=== PATIENT | male | born 1960 | race African-American/Black ===

== ENCOUNTER 2018-10-05 17:53 | Emergency (ER) | payer OTHER ==
--- NOTE | 2018-10-05 18:56 | ED ---
HPI Chest Pain - HPI Summary HPI Summary: A 58 y/o male presents to [facility] with a chief complaint of left CP since . He rates his pain as 5/10. The patient reports that he was exercising performing squats and had a large brunch later that day. After brunch he had CP and deep breaths aggravated his pain. He also c/o dyspnea, rib pain and cough. He states that he took ibuprofen the night of 10/04/18 and that his pain was worse on 10/04/18 than it is on 10/05/18. He has a Hx of HTN and takes 5mg Norvasc daily. - History of Current Complaint Chief Complaint: EDChestPainROMI Time Seen by Provider: 10/05/18 18:35 Hx Obtained From: Patient Onset/Duration: Started Days Ago, Still Present Timing: Constant Initial Severity: Moderate Current Severity: Moderate Pain Intensity: 5 Pain Scale Used: 0-10 Numeric Chest Pain Location: Diffuse - left side Chest Pain Radiates: No Character: Other: - sore Associated Signs and Symptoms: Positive: Cough, Other: - dyspnea, rib pain - Allergy/Home Medications Allergies/Adverse Reactions: Allergies Allergy/AdvReac Type Severity Reaction Status Date / Time alprazolam [From Xanax] Allergy Anaphylatic Verified 10/05/18 17:56 Shock Home Medications: Home Medications amLODIPine TAB* [Norvasc 5 mg TAB*] 5 mg PO DAILY 10/05/18 [History Confirmed ] PMH/Surg Hx/FS Hx/Imm Hx Endocrine/Hematology History: Denies: Hx Diabetes Cardiovascular History: Reports: Hx Hypertension Denies: Hx Cardiac Arrest Infectious Disease History: No Infectious Disease History: Denies: Traveled Outside the [place] in Last 30 Days - Family History Known Family History: Positive: Cardiac Disease, Hypertension, Other - Cancer- father,sister Negative: Diabetes - Social History Alcohol Use: Occasionally Substance Use Type: Reports: None Smoking Status (MU): Never Smoked Tobacco Review of Systems Positive: Chest Pain Positive: Cough, Other - dyspnea Positive: Myalgia - rib pain All Other Systems Reviewed And Are Negative: Yes Physical Exam - Summary Physical Exam Summary: Appearance: The patient is well-nourished in no acute distress and in no acute pain. Skin: The skin is warm and dry and skin color reflects adequate perfusion. HEENT: The head is normocephalic and atraumatic. The pupils are equal and reactive. The conjunctivae are clear and without drainage. Nares are patent and without drainage. Mouth reveals moist mucous membranes and the throat is without erythema and exudate. The external ears are intact. The ear canals are patent and without drainage. The tympanic membranes are intact. Neck: The neck is supple with full range of motion and non-tender. There are no carotid bruits. There is no neck vein distension. Respiratory: Tender left chest wall. Crackles on base of left lung. Cardiovascular: Heart is regular rate and rhythm. There is no murmur or rub auscultated. There is no peripheral edema and pulses are symmetrical and equal. Abdomen: The abdomen is soft and non-tender. There are normal bowel sounds heard in all four quadrants and there is no organomegaly palpated. Musculoskeletal: There is no back tenderness noted. Extremities are non-tender with full range of motion. There is good capillary refill. There is no peripheral edema or calf tenderness elicited. Neurological: Patient is alert and oriented to person, place and time. The patient has symmetrical motor strength in all four extremities. Cranial nerves are grossly intact. Deep tendon reflexes are symmetrical and equal in all four extremities. Psychiatric: The patient has an appropriate affect and does not exhibit any anxiety or depression. Triage Information Reviewed: Yes Vital Signs On Initial Exam: Initial Vitals Temp Pulse Resp BP Pulse Ox 98.6 F 83 16 153/83 98 10/05/18 17:57 10/05/18 17:57 10/05/18 17:57 10/05/18 17:57 10/05/18 17:57 Vital Signs Reviewed: Yes Diagnostics - Vital Signs Vital Signs Temp Pulse Resp BP Pulse Ox 10/05/18 17:57 98.6 F 83 16 153/83 98 - Laboratory Result Diagrams: 10/05/18 19:20 10/05/18 19:20 Lab Statement: Any lab studies that have been ordered have been reviewed, and results considered in the medical decision making process. - Radiology CXR Radiology Interpretation Completed By: ED Physician Summary of Radiographic Findings: New onset right pleural effusion. Pending official radiology report. - CT Chest/thorax CTA CT Interpretation Completed By: Radiologist Summary of CT Findings: 1. Mild bilateral pulmonary embolism, left greater than right and greatest in. the lingula with near complete occlusion. 2. Mild lingular ground glass infiltrates and mild left lower lobe atelectasis. or consolidation. Pulmonary infarct is not excluded. There is mild right lower. lobe fibro-atelectatic change. ED physician has reviewed this report. - EKG 18:04 Cardiac Rate: NL - 86 bpm EKG Rhythm: Sinus Rhythm Summary of EKG Findings: Normal sinus rhythm, normal ST, no ectopy, no STEMI Chest Pain Course/Dx - Course Course Of Treatment: Mr. Escobedo presented with a pleuritic left-sided chest pain, normal vitals and was nontoxic in appearance. Chest x-ray revealed left lower lobe infiltrate versus atelectasis and his d-dimer was elevated 700. CTA was obtained and showed bilateral PEs and probable left lingular infarction. The hospitalist service was contacted for admission. - Diagnoses Provider Diagnoses: Pulmonary emboli - Provider Notifications Discussed Care Of Patient With: Lisa Torres Time Discussed With Above Provider: 21:40 Instructed by Provider To: Admit As Inpatient - Critical Care Time Critical Care Time: 30-74 min Discharge - Sign-Out/Discharge Documenting (check all that apply): Patient Departure - admit - Discharge Plan Condition: Fair Disposition: ADMITTED TO [facility] Referrals: No Primary Care Phys,NOPCP [Primary Care Provider] - - Billing Disposition and Condition Condition: FAIR Disposition: Admitted to [facility] - Attestation Statements Document Initiated by Bernardino: Yes Documenting Scribe: Chuck Root Provider For Whom Bernardino is Documenting (Include Credential): Krzysztof Taylor MD Scribe Attestation: IChuck, scribed for Krzysztof Taylor MD on 10/05/18 at 2205. Scribe Documentation Reviewed: Yes Provider Attestation: The documentation as recorded by the Chuck bashir accurately reflects the service I personally performed and the decisions made by me, Krzysztof Taylor MD Status of Scribe Document: Viewed
[2018-10-05 19:32] LABS: ABS Basophils 0.1 10^3/ul (0-0.2); ABS Eosinophils 0.1 10^3/ul (0-0.6); ABS Lymphocytes 1.6 10^3/ul (1.0-4.8); ABS Neutrophils 5.4 10^3/ul (1.5-7.7); ABS Nucleated RBC 0 10^3/ul; Eosinophil % 1.4 %; Hematocrit 49 % (42-52); Hemoglobin 16.1 g/dl (14.0-18.0); Lymphocyte % 19.9 %; Mean Corpuscular HGB Conc 33 g/dl (31-36); Mean Corpuscular Hemoglobin 28 pg (27-31); Mean Corpuscular Volume 86 fL (80-94); Mean Platelet Volume 7.7 fL (7.4-10.4); Nucleated Red Blood Cells % 0.1; Platelet Count 244 10^3/ul (150-450); Red Blood Count 5.68 10^6/ul (4.00-5.40); Red Cell Distribution Width 15 % (10.5-15); White Blood Count 8.1 10^3/ul (3.5-10.8)
[2018-10-05 19:49] LABS: EGFR Non-African American 95.5 (>60)
[2018-10-05] MEDS ORDERED: Iohexol 350* (CONTRAST) 500 ML MDV IV ONE (20:44)
[2018-10-05] MEDS ORDERED: Rivaroxaban TAB(*) 15 MG PO ONE ×2 (23:14→23:15)
[2018-10-06 00:02] VITALS: BP 165/78
--- NOTE | 2018-10-06 01:35 | CONS ---
CC: Dr. Nowak in [place] * [facility] MEDICINE CONSULTATION REPORT: DATE OF CONSULT: 10/05/18 - EMERGENCY DEPT PRIMARY CARE PHYSICIAN: Dr. Nowak in [place]. ATTENDING PHYSICIAN: Dr. Lisa Torres (dictation provided by Anuradha Gaytan NP) CHIEF COMPLAINT: Chest pain. HISTORY OF PRESENT ILLNESS: Mr. 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 Mr. Escobedo states he was in his normal state of health until Saturday when he began feeling some pain in the left side of his chest. He states at times it was 10/10, it is worse with deep breath, worse with coughing. He thought perhaps it was due to aggressive exercise routine he had done on Saturday, but when the symptoms did not let up by today, he knew that something was amiss. He denies any shortness of breath. He has had no other symptoms. No fever, no cough. No nausea, vomiting, diarrhea, or abdominal pain. In the emergency room, Mr. Escobedo had labs which showed a D-dimer of 701. He had a troponin which was 0.00, and the rest of his labs were unremarkable. He had a chest thorax CTA, which showed pulmonary emboli read as "mild" with left greater than right and greatest in the lingula with near complete occlusion and there was a mild lingular ground-glass infiltrate and left lower lobe atelectasis consistent likely with a pulmonary infarction. The patient's vitals were stable. He was not tachycardic for the most part, but his heart rate was never over 100. His blood pressure was stable. PAST MEDICAL HISTORY: 1. History of brain aneurysm with bleeding and sequela of left footdrop. 2. Hypertension. 3. History of DVT to right lower extremity. MEDICATIONS: Outpatient, amlodipine 5 mg p.o. daily. ALLERGIES: ALPRAZOLAM. FAMILY HISTORY: Reviewed and noncontributory. SOCIAL HISTORY: No report of alcohol, tobacco, or drug use. The patient lives [place] near [place], but is here in town while working. REVIEW OF SYSTEMS: A 14-point review of systems was completed with Mr. Escobedo and all those not mentioned above were negative. PHYSICAL EXAMINATION: Vital Signs: Temperature 98.6, pulse rate 100, respiratory rate 28, O2 saturation 92% to 98% on room air, blood pressure 160/ 100. General: Mr. Escobedo is sitting up on the bed. He is in no acute distress. Neuro: He is alert, he is oriented x3. He moves all extremities equally. There is no facial asymmetry or focal weakness. Extraocular movements are intact. Heart: S1, S2. No murmur, rub, or gallop, and regular. Lungs: Clear to auscultation bilaterally with no accessory muscle use and good aeration. Abdomen: Soft and nontender with bowel sounds positive x4. Extremities: No cyanosis or edema. Skin is intact. DIAGNOSTIC STUDIES/LAB DATA: Sodium 139, potassium 4.2, chloride 105, serum bicarbonate 29, BUN 15, creatinine 0.83, glucose 100, lactic acid 0.6. Troponin 0.00. Repeat troponin was 0.04. WBC 8.1, hemoglobin 16.1, hematocrit 49, platelet count 244. D-dimer 701. Again, the chest thorax CTA shows the pulmonary embolism as noted above. EKG shows sinus rhythm with no evidence of ischemia. ASSESSMENT AND PLAN: Mr. Escobedo is a 58-year-old male who presents today to the hospital with concern for chest pain, found to have an acute pulmonary embolism. Hospital Medicine has been consulted regarding need for admission. We concur that the patient does warrant admission to the hospital and he should be observed in the hospital overnight. We would recommend that he have a transthoracic echocardiogram and initiation of oral anticoagulation. The patient does have a distant history of an aneurysm. This has been discussed whether or not this will be safe to put him on anticoagulation, and as of this time after discussion with Dr. Hayden, that the benefits of anticoagulation outweigh the risk given that any previous aneurysm has certainly stabilized. In reviewing with Dr. Hayden as well, there is no indication that there would be any difference in risk ratio for warfarin versus a newer anticoagulant, and so we would agree that an anticoagulant with direct-acting oral anticoagulant would be appropriate. Plan to start Xarelto. Unfortunately, the patient is not able to stay in the hospital. He states adamantly that he has a job that he cannot miss and he must be there by 8 a.m. to unlock the doors of his facility. He understands the risk of leaving, but states that he also cannot lose his job. We have worked with pharmacy to provide him with his first dose of Xarelto tonight and also to send him home with one dose for the a.m. I have sent a prescription for his Xarelto to [facility]. I have encouraged him to call [facility] tomorrow morning to determine the cost of the medication and to make sure that he is able to afford it. If he has any issue whatsoever with obtaining this medication, I have asked him to call our [facility] and I have left him the phone number. I have also told him that he can call [facility] at any time if he has any issue or needs followup and is unable to get to see his primary care physician. I have instructed him that he should immediately return to the hospital should he have any chest pain or shortness of breath. I have counseled him fully that our recommendation is for him to remain in the hospital and advised him about the risks and benefits of leaving. He has completed an AMA form today and he has capacity to make that decision. Mr. Escobedo will be discharged today against medical advice at his wishes. Every effort has been made to make sure that he is safe with this discharge and to provide him with appropriate medications. TIME SPENT: Approximately 90 minutes were spent in the consultation of this patient, more than half the time spent with the patient at the bedside reviewing the events leading up to this hospitalization, performing this consultation, and reviewing the discharge plan. ANURADHA GAYTAN NP [id number]/[facility] #: [id number] JAMAL
== END 2018-10-06 00:01 | disposition home or self-care (01) ==
LOC: ED 17:53
DX: I26.99 Other pulmonary embolism without acute cor pulmonale (principal); R05 Cough; R06.00 Dyspnea, unspecified; R07.81 Pleurodynia; R07.9 Chest pain, unspecified; Z86.79 Personal history of other diseases of the circulatory system; Z86.718 Personal history of other venous thrombosis and embolism
CPT/HCPCS: 36415; 71046; 71275; 80053; 83605; 84484; 85025; 85379; 93005; 99284; Q9967

== ENCOUNTER 2019-04-03 10:52 | Emergency (ER) | payer OTHER ==
[2019-04-03 13:20] LABS: ABS Eosinophils 0.1 10^3/ul (0-0.6); ABS Lymphocytes 1.6 10^3/ul (1.0-4.8); ABS Monocytes 0.5 10^3/ul (0-0.8); ABS Neutrophils 2.5 10^3/ul (1.5-7.7); Hematocrit 47 % (42-52); Hemoglobin 15.2 g/dL (14.0-18.0); Lymphocyte % 33.8 %; Mean Corpuscular HGB Conc 33 g/dL (31-36); Mean Corpuscular Hemoglobin 28 pg (27-31); Mean Corpuscular Volume 87 fL (80-94); Mean Platelet Volume 7.4 fL (7.4-10.4); Nucleated Red Blood Cells % 0.1; Platelet Count 260 10^3/uL (150-450); Red Cell Distribution Width 14 % (10.5-15); White Blood Count 4.8 10^3/uL (3.5-10.8)
--- NOTE | 2019-04-03 13:24 | ED ---
Abdominal Pain/Male - HPI Summary HPI Summary: This patient is a 58 year old M presenting to ED with a chief complaint of left rib/mid back pain since one week ago. Patient had a PE last September/October and states this feels similar. Patient is not taking Xarelto anymore. The patient rates the pain 5/10 in severity. Symptoms aggravated by nothing. Symptoms alleviated by nothing. Patient reports productive coughing, pain to abdomen and back, SOB, fatigue. 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 FHx of cancer, cardiac disease, ND. Patient drinks alcohol but does not smoke tobacco or use drugs. PSHx of hand reconstruction 20 years ago. - History of Current Complaint Chief Complaint: EDGeneral Stated Complaint: LEFT RIB PAIN, POSSIBLE BLOOD CLOT , NECK PAIN PER Time Seen by Provider: 04/03/19 13:12 Hx Obtained From: Patient Onset/Duration: Lasting Weeks - 1 week, Still Present Timing: Constant Severity Currently: Mild Pain Intensity: 4 Pain Scale Used: 0-10 Numeric Location: Other - Left rib Radiates: Yes Radiates to: Back - Mid back Aggravating Factor(s): Nothing Alleviating Factor(s): Nothing Associated Signs And Symptoms: Positive: Cough - Productive, Other - SOB, fatigue Similar Episode/Dx As:: Previous PE - Allergies/Home Medications Allergies/Adverse Reactions: Allergies Allergy/AdvReac Type Severity Reaction Status Date / Time alprazolam [From Xanax] Allergy Anaphylatic Verified 04/03/19 11:08 Shock Home Medications: Home Medications amLODIPine TAB* [Norvasc 5 mg TAB*] 5 mg PO DAILY 04/03/19 [History Confirmed ] PMH/Surg Hx/FS Hx/Imm Hx Endocrine/Hematology History: Denies: Hx Diabetes Cardiovascular History: Reports: Hx Aneurysm - Double aneurysm in brain 18 years ago, Hx Hypertension Denies: Hx Cardiac Arrest - Surgical History Surgery Procedure, Year, and Place: Hand reconstruction 20 years ago Infectious Disease History: No Infectious Disease History: Denies: Traveled Outside the [place] in Last 30 Days - Family History Known Family History: Positive: Cardiac Disease, Hypertension, Other - Cancer- father,sister Negative: Diabetes - Social History Alcohol Use: Occasionally Hx Substance Use: No Substance Use Type: Reports: None Hx Tobacco Use: No Smoking Status (MU): Never Smoked Tobacco Review of Systems Positive: Shortness Of Breath, Cough - Productive Musculoskeletal: Other - Left rib and mid back pain Neurological: Other - Fatigue All Other Systems Reviewed And Are Negative: Yes Physical Exam - Summary Physical Exam Summary: Appearance: well appearing, no pain distress Skin: warm, dry, reflects adequate perfusion Head/face:normal Eyes:EOMI, DANIEL ENT: mucous membranes moist Neck: supple, non-tender Respiratory: CTA, breath sounds present Cardiovascular:RRR, pulses symmetrical Abdomen: non-tender, soft Bowel Sounds:present Musculoskeletal:normal, strength/ROM intact Neuro:normal, sensory motor intact, A&Ox3 Triage Information Reviewed: Yes Vital Signs On Initial Exam: Initial Vitals Temp Pulse Resp BP Pulse Ox 98.3 F 97 18 157/104 95 04/03/19 10:55 04/03/19 10:55 04/03/19 10:55 04/03/19 10:55 04/03/19 10:55 Vital Signs Reviewed: Yes Diagnostics - Vital Signs Vital Signs Temp Pulse Resp BP Pulse Ox 04/03/19 10:55 98.3 F 97 18 157/104 95 - Laboratory Result Diagrams: 04/03/19 13:03 04/03/19 13:03 Lab Statement: Any lab studies that have been ordered have been reviewed, and results considered in the medical decision making process. - CT Chest/Thorax CT Interpretation Completed By: Radiologist Summary of CT Findings: FILLING DEFECT WITHIN A SEGMENTAL BRANCH OF THE PULMONARY ARTERY TO THE LEFT UPPER LOBE CONSISTENT WITH PULMONARY EMBOLISM. Dr. Han has reviewed this radiology report. - Ultrasound No standard instances Ultrasound Interpretation Completed By: Radiologist Summary of Ultrasound Findings: Venous DVT US: Bilateral lower extremity DVT. Dr. Han has reviewed this radiology report. - EKG 1612 Cardiac Rate: NL - 70 BPM EKG Rhythm: Sinus Rhythm ST Segment: Normal Summary of EKG Findings: Normal EKG. NSR: 70 BPM. Normal [place]. Normal Interval. Normal ST Re-Evaluation - Re-Evaluation First Eval Re-Evaluation Time: 15:10 Comment: Discussed CT result with patient and pulmonary embolism. Patient agrees to US on legs. Second Eval Re-Evaluation Time: 16:42 Comment: Discussed US result with patient. Patient refused admission to [facility]. Patient will be discharged home with dx of bilateral DVT, left-sided pulmonary embolism. Strict precautions were given to stay compliant to medication regimen to prevent pulmonary embolism. Patient understands and agrees with this plan. Abdominal Pain Male Course/Dx - Course Course Of Treatment: Patient with a history of pulmonary embolus in the past today presents with similar type pain. CT is positive for pulmonary embolus in the left upper lung. DVT scan of the lower extremities shows bilateral DVT. He was started on oral Eliquis here as he would not entertain being admitted to the hospital. I spoke to his primary care doctor who is the on-call hospitalist today who will follow him up. She states that she leaves she referred him for hypercoagulability workup however he didn't go. He also didn' t complete his first round of anticoagulants after PE. I'm not certain he would here but I have spent quite a bit of time helping him understand the importance of this. His nurse also spent an abundance of time insuring that he understood the magnitude of his diagnosis and the importance of the treatment. Following discharge the patient went to the pharmacy where he says the medication was too expensive. I had gone out of my way to show him how to get a coupon from the [employer] for the first months treatment. He then called back and I again reiterated the importance of treatment for this diagnosis. I explained that he can come back and we could start Lovenox/Coumadin which he also does not want to do. I asked him to call me in the morning from the pharmacy where we can coordinate with them to find him the cheapest alternative treatment that would adequately treat his disease. - Diagnoses Differential Diagnosis/HQI/PQRI: Other - DVT, PE, hypercoagulability Provider Diagnoses: DVT, bilateral lower limbs, Pulmonary embolism on left - Provider Notifications Discussed Care Of Patient With: Sarthak Baldwin Time Discussed With Above Provider: 15:05 Instructed by Provider To: Other - Discussed CTA results with Dr. Baldwin who confirmed patient has a pulmonary embolism. Discharge - Sign-Out/Discharge Documenting (check all that apply): Patient Departure - Discharge Patient Received Moderate/Deep Sedation with Procedure: No - Discharge Plan Condition: Improved Disposition: HOME Prescriptions: Apixaban* [Eliquis*] 5 mg PO SEE INSTRUCTIONS #70 tab Patient Education Materials: Apixaban (By mouth), Pulmonary Embolism (ED), Deep Vein Thrombosis (ED) Referrals: Dorinda Lugo DO [Primary Care Provider] - Additional Instructions: [employer] has a coupon you can get reduced cost of 1st month of prescription. Do not miss medication. This is very important. Not taking the medication could lead to blood clots in your legs breaking off and going to your lungs as discussed. Do not do lower body exercises until cleared by your doctor. Call your doctor on Saturday to schedule prompt follow-up. You will need additional blood work to ensure that you do not have a hypercoagulable condition. Return to the ER with chest pain, difficulty breathing, worse, new symptoms or other concerns as discussed. - Billing Disposition and Condition Condition: IMPROVED Disposition: Home - Attestation Statements Document Initiated by Bernardino: Yes Documenting Scribe: Ajay Hamilton Provider For Whom Bernardino is Documenting (Include Credential): Elder Han MD Scribe Attestation: Ajay Ribera, scribed for Elder Han MD on 04/03/19 at 1908. Scribe Documentation Reviewed: Yes Provider Attestation: The documentation as recorded by the Ajay bashir accurately reflects the service I personally performed and the decisions made by , Elder Han MD Status of Scribluis Document: Viewed
[2019-04-03 13:37] LABS: EGFR Non-African American 104.1 (>60); Potassium 4.2 mmol/L (3.5-5.0)
[2019-04-03] MEDS ORDERED: Iohexol 350* (CONTRAST) 500 ML MDV IV ONE (14:33)
[2019-04-03] MEDS ORDERED: Apixaban* 5 MG TAB PO ONE (15:08)
[2019-04-03 17:32] VITALS: BP 151/94
== END 2019-04-03 17:31 | disposition home or self-care (01) ==
LOC: ED 10:52
DX: I82.403 Acute embolism and thrombosis of unspecified deep veins of lower extremity, bilateral (principal); I26.99 Other pulmonary embolism without acute cor pulmonale; I10 Essential (primary) hypertension; Z88.8 Allergy status to other drugs, medicaments and biological substances; Z86.711 Personal history of pulmonary embolism; Z79.899 Other long term (current) drug therapy
CPT/HCPCS: 36415; 71275; 80048; 84484; 85025; 93005; 93970; 99283; Q9967